=== PATIENT | female | born 1985 ===

== ENCOUNTER 2024-02-09 20:15 | Inpatient (IN) | payer OTHER ==
[2024-02-09 21:33] LABS: BASO % 0.3 % (0-2.0); EOS % 0.9 % (0-4.5); HEMATOCRIT 28.6 % (32.4-45.2); LYMPH % 21.6 % (8-40); MCH 26.1 pg (25.7-33.7); MCHC 31.5 g/dl (32.0-36.0); MEAN CELL VOLUME 82.9 fl (80-96); MEAN PLT VOLUME 10.4 fl (7.5-11.1); MONO % 8.4 % (3.8-10.2); NEUT % 68.8 % (42.8-82.8); PLATELET COUNT 120 10^3/uL (134-434); RBC 3.45 M/mm3 (3.60-5.2); RDW 13.7 % (11.6-15.6)
[2024-02-09 21:40] LABS: INR 0.9 (0.83-1.09); PROTHROMBIN TIME (PATIENT) 10.5 SEC (9.7-13.0)
[2024-02-09 21:42] LABS: ACTIVATED PTT 28.1 SECONDS (25.2-36.5)
[2024-02-09 21:51] LABS: POTASSIUM 3.4 mmol/L (3.5-5.1)
[2024-02-09 21:54] LABS: ALBUMIN 2.2 g/dl (3.4-5.0); CALCIUM 8.6 mg/dL (8.5-10.1)
[2024-02-09 21:57] LABS: CREATININE 0.8 mg/dL (0.55-1.3)
[2024-02-09 21:59] LABS: BILIRUBIN,TOTAL 0.3 mg/dL (0.2-1); TOT PROT 5.1 g/dl (6.4-8.2)
[2024-02-09] MEDS: DEXTROSE 5%-LACTATED RINGERS 1,000 ML IV SCH (22:00)
[2024-02-09] MEDS ORDERED: NIFEdipine 10 MG CAPSULE (FP) ONE (22:40)
[2024-02-09] MEDS: NIFEdipine 10 MG CAPSULE (FP) PO ONE (22:45)
[2024-02-09] MEDS: MISOPROSTOL 25 MCG TABLET (COMPOUNDED BY PHARMACY) PV SCH (23:15)
[2024-02-09 23:19] VITALS: BMI 36.8
[2024-02-10] MEDS ORDERED: LABETALOL HCL 20 MG/4 ML VIAL ONE ×2 (00:35→07:31)
[2024-02-10] MEDS: LABETALOL HCL 5 MG/1 ML (100MG/20 ML VIAL) IVPUSH ONE (00:40)
[2024-02-10] MEDS ORDERED: MAGNESIUM 4GM/H20 - 4 GM/100 ML IVPB IVPB ONE (00:49)
[2024-02-10] MEDS: MAGNESIUM 4GM/H20 - 4 GM/100 ML IVPB IVPB ONE (00:55)
[2024-02-10] MEDS ORDERED: ACETAMINOPHEN 325 MG TABLET (FP) ONE (04:29)
[2024-02-10] MEDS: ACETAMINOPHEN 325 MG TABLET (FP) PO ONE (04:35)
[2024-02-10] MEDS: LABETALOL HCL 20 MG/4 ML VIAL IVPUSH ONE (07:47)
[2024-02-10] MEDS: MAGNESIUM SULFATE 20GM/500ML - 20 GM/500 ML INFUS.BAG IVPB SCH (07:50)
[2024-02-10] MEDS: NIFEdipine 10 MG CAPSULE (FP) PO ONE ×2 (09:45→20:10)
[2024-02-10 09:58] LABS: BASO % 0.4 % (0-2.0); EOS % 0.5 % (0-4.5); HEMATOCRIT 32.8 % (32.4-45.2); HEMOGLOBIN 10.3 GM/dL (10.7-15.3); LYMPH % 14.2 % (8-40); MCH 26.1 pg (25.7-33.7); MCHC 31.3 g/dl (32.0-36.0); MEAN CELL VOLUME 83.4 fl (80-96); MEAN PLT VOLUME 10.8 fl (7.5-11.1); MONO % 6.9 % (3.8-10.2); PLATELET COUNT 124 10^3/uL (134-434); RBC 3.93 M/mm3 (3.60-5.2); WHITE BLOOD COUNT 10.8 K/mm3 (4.0-10.0)
[2024-02-10 10:22] LABS: POTASSIUM 3.6 mmol/L (3.5-5.1)
[2024-02-10 10:25] LABS: ALBUMIN 2.4 g/dl (3.4-5.0); BLOOD UREA NITROGEN 6.8 mg/dL (7-18); CALCIUM 8.9 mg/dL (8.5-10.1); MAGNESIUM 2.7 mg/dL (1.8-2.4)
[2024-02-10 10:28] LABS: CREATININE 0.7 mg/dL (0.55-1.3)
[2024-02-10 10:30] LABS: BILIRUBIN,TOTAL 0.5 mg/dL (0.2-1); TOT PROT 5.7 g/dl (6.4-8.2)
[2024-02-10] MEDS ORDERED: PENICILLIN G POTASSIUM 20,000,000 (20Mm) UNITS VIAL IVPB ONE (10:47)
[2024-02-10] MEDS ORDERED: PENICILLIN G POTASSIUM 5,000,000 UNIT/250 ML BAG IVPB ONE (11:17)
[2024-02-10] MEDS: PENICILLIN G POTASSIUM 5,000,000 UNIT/250 ML BAG IVPB ONE (11:30)
[2024-02-10] MEDS ORDERED: morphine SULFATE 4 MG/ML VIAL ONE ×2 (11:38→22:55)
[2024-02-10] MEDS: morphine CARPU-JECT 8 MG/1 ML DISP.SYRIN IVPUSH ONE (11:40)
[2024-02-10] MEDS ORDERED: FENTANYL/BUPIVACAINE/NS/PF - PCEA - 50 ML DISP.SYRIN EP ONE ×3 (14:01→20:35)
[2024-02-10] MEDS: FENTANYL/BUPIVACAINE/NS/PF - PCEA - 50 ML DISP.SYRIN EP SCH (14:25)
[2024-02-10] MEDS ORDERED: NALOXONE HCL 0.4 MG/ML VIAL IVPUSH PRN (14:35)
[2024-02-10] MEDS: SODIUM CHLORIDE 500 ML IV STA (17:30)
[2024-02-10] MEDS ORDERED: OXYTOCIN 30 UNITS in 0.9% NS 30 UNIT/500 ML INFUS.BAG IVPB ONE (17:52)
[2024-02-10] MEDS: OXYTOCIN 30 UNITS in 0.9% NS 30 UNIT/500 ML INFUS.BAG IVPB SCH (17:55)
[2024-02-10] MEDS ORDERED: NIFEdipine 10 MG CAPSULE (FP) ONE (20:09)
[2024-02-10] MEDS ORDERED: FENTANYL CITRATE/PF 50 MCG/ML VIAL ONE (22:09)
[2024-02-10] MEDS ORDERED: AZITHROMYCIN IVPB 500 MG/250 ML BAG IVPB ONE (22:33)
[2024-02-10] MEDS ORDERED: OXYTOCIN 10 UNITS/ML VIAL ONE (22:45)
[2024-02-10] MEDS ORDERED: ONDANSETRON 4 MG/2 ML VIAL ONE (22:45)
[2024-02-10] MEDS ORDERED: ceFAZolin SODIUM 1 GM VIAL ONE (22:45)
[2024-02-11] MEDS ORDERED: OXYTOCIN 20 UNITS in 0.9% NS 20 UNIT/1,000 ML INFUS.BAG IV ONE (00:04)
[2024-02-11] MEDS: MAGNESIUM 4GM/H20 - 4 GM/100 ML IVPB IVPB ONE (00:13)
[2024-02-11 00:22] LABS: CORD HCO3 21.9 mmHg (20-29); CORD PCO2 69.7 mmHg (30-78); CORD pH 7.116 (7.14-7.44)
[2024-02-11 00:25] LABS: CORD BASE EXCESS -6.8 mmol/L (0-2); CORD HCO3 20.6 mmHg (20-29); CORD PCO2 48.4 mmHg (30-78); CORD pH 7.247 (7.14-7.44)
[2024-02-11] MEDS ORDERED: MAGNESIUM SULFATE 20GM/500ML - 20 GM/500 ML INFUS.BAG ONE ×2 (00:43→20:51)
[2024-02-11] MEDS: OXYTOCIN 20 UNITS in 0.9% NS 20 UNIT/1,000 ML INFUS.BAG IV SCH ×2 (00:45)
[2024-02-11] MEDS: MAGNESIUM SULFATE 20GM/500ML - 20 GM/500 ML INFUS.BAG IVPB SCH (00:48)
[2024-02-11] MEDS ORDERED: NIFEdipine E.R. 30 MG TABLET PO ONE ×2 (08:42→11:44)
[2024-02-11] MEDS: NIFEdipine E.R. 30 MG TABLET PO SCH (08:44)
[2024-02-11] MEDS ORDERED: oxyCODONE HCL 5 MG TABLET PO PRN (12:04)
[2024-02-11] MEDS ORDERED: IBUPROFEN 600 MG TABLET (FP) PO ONE ×3 (12:23→20:56)
[2024-02-11] MEDS: IBUPROFEN 600 MG TABLET (FP) PO PRN (12:30)
[2024-02-11] MEDS: SODIUM CHLORIDE 1,000 ML IV SCH (12:30)
[2024-02-12] MEDS ORDERED: IBUPROFEN 600 MG TABLET (FP) PO ONE (01:20)
[2024-02-12 06:32] LABS: BASO % 0.3 % (0-2.0); EOS % 1.2 % (0-4.5); HEMATOCRIT 26.2 % (32.4-45.2); HEMOGLOBIN 8.2 GM/dL (10.7-15.3); LYMPH % 12.3 % (8-40); MCH 25.9 pg (25.7-33.7); MCHC 31.3 g/dl (32.0-36.0); MEAN CELL VOLUME 82.6 fl (80-96); MONO % 6.4 % (3.8-10.2); NEUT % 79.8 % (42.8-82.8); PLATELET COUNT 130 10^3/uL (134-434); RBC 3.17 M/mm3 (3.60-5.2); RDW 14.3 % (11.6-15.6); WHITE BLOOD COUNT 13.6 K/mm3 (4.0-10.0)
[2024-02-12] MEDS: ACETAMINOPHEN 325 MG TABLET (FP) PO PRN (17:52)
[2024-02-14 07:27] LABS: BASO % 0.4 % (0-2.0); HEMATOCRIT 25.2 % (32.4-45.2); HEMOGLOBIN 8.1 GM/dL (10.7-15.3); LYMPH % 20.2 % (8-40); MCH 26.4 pg (25.7-33.7); MCHC 32.2 g/dl (32.0-36.0); MEAN CELL VOLUME 82.1 fl (80-96); MONO % 7.2 % (3.8-10.2); NEUT % 70.2 % (42.8-82.8); PLATELET COUNT 189 10^3/uL (134-434); RBC 3.08 M/mm3 (3.60-5.2); RDW 14.2 % (11.6-15.6); WHITE BLOOD COUNT 9.8 K/mm3 (4.0-10.0)
[2024-02-14] MEDS: FLU VACCINE (FLULAVAL) PF 60 MCG/0.5 ML SYRINGE 2023-2024 IM ONE (09:34)
[2024-02-14] MEDS: LABETALOL HCL 200 MG TABLET (FP) PO SCH (13:30)
[2024-02-14] MEDS: SUMAtriptan SUCCINATE 25 MG TABLET PO ONE (14:56)
[2024-02-14] MEDS: ENOXAPARIN NA (PORCINE) 40 MG/0.4 ML DISP.SYRIN SQ SCH (19:23)
[2024-02-14] MEDS: NIFEdipine 10 MG CAPSULE (FP) PO ONE (19:23)
[2024-02-15 07:57] LABS: BASO % 0.5 % (0-2.0); EOS % 2.6 % (0-4.5); HEMATOCRIT 24.7 % (32.4-45.2); HEMOGLOBIN 8.1 GM/dL (10.7-15.3); LYMPH % 15.6 % (8-40); MCH 26.7 pg (25.7-33.7); MCHC 32.7 g/dl (32.0-36.0); MEAN CELL VOLUME 81.7 fl (80-96); MEAN PLT VOLUME 9.5 fl (7.5-11.1); MONO % 7.6 % (3.8-10.2); NEUT % 73.7 % (42.8-82.8); PLATELET COUNT 215 10^3/uL (134-434); RBC 3.03 M/mm3 (3.60-5.2); RDW 14.3 % (11.6-15.6); WHITE BLOOD COUNT 8.1 K/mm3 (4.0-10.0)
[2024-02-15 08:06] LABS: POTASSIUM 4.1 mmol/L (3.5-5.1)
[2024-02-15 08:11] LABS: ALBUMIN 2.2 g/dl (3.4-5.0); BLOOD UREA NITROGEN 4.4 mg/dL (7-18); CALCIUM 8.2 mg/dL (8.5-10.1)
[2024-02-15 08:14] LABS: BILIRUBIN,TOTAL 0.7 mg/dL (0.2-1); CREATININE 0.4 mg/dL (0.55-1.3); TOT PROT 5.4 g/dl (6.4-8.2)
[2024-02-15 08:58] VITALS: RESP 18; TEMP 98.9
[2024-02-15] MEDS: NIFEdipine E.R 60 MG TABLET PO SCH (09:00)
[2024-02-15] MEDS: NIFEdipine 10 MG CAPSULE (FP) PO ONE (11:51)
[2024-02-15 17:21] VITALS: BP 155/82; PULSE 81
== END 2024-02-15 20:20 | disposition home or self-care (01) | DRG 540 ==
LOC: JLDR 20:15 → J3W 02-12 01:42
PROVIDERS: ADMIT Obstetrics & Gynecology Maternal & Fetal Medicine; ATTEND Obstetrics & Gynecology Maternal & Fetal Medicine
PROC: 10D00Z1 Extraction of Products of Conception, Low, Open Approach (ICD-10-PCS; principal; 2024-02-10)
DX: O14.94 Unspecified pre-eclampsia, complicating childbirth (principal); O24.429 Gestational diabetes mellitus in childbirth, unspecified control; O99.12 Other diseases of the blood and blood-forming organs and certain disorders involving the immune mechanism complicating childbirth; D68.61 Antiphospholipid syndrome; O62.1 Secondary uterine inertia; Z3A.37 37 weeks gestation of pregnancy; Z37.0 Single live birth; O90.89 Other complications of the puerperium, not elsewhere classified; R51.9 Headache, unspecified
CPT/HCPCS: 36415; 36600; 80053; 82803; 83735; 84450; 84460; 85025; 85610; 85730; 86780; 86850; 86900; 86901; 86922; 88307-TC; 90686; 93970-TC